=== PATIENT | female | born 1950 | race Caucasian/White ===

== ENCOUNTER 2023-08-22 13:05 | Outpatient (RCR) | payer MEDICARE, BC, SELFPAY ==
[2023-08-22 13:45] VITALS: BP 126/62
[2023-08-22] MEDS: RECLAST 100 IV (14:11)
[2023-08-22 14:50] VITALS: BP 126/69
== END 2023-08-23 08:47 | disposition home or self-care (01) ==
LOC: OID 13:05
PROVIDERS: ATTENDING PHYSICIAN Internal Medicine Endocrinology, Diabetes & Metabolism; FAMILY PHYSICIAN Family Medicine
DX: M85.89 Other specified disorders of bone density and structure, multiple sites (principal)
CPT/HCPCS: 96365; J3489